=== PATIENT | female | born 1985 | race Caucasian/White ===

== ENCOUNTER 2016-09-21 06:16 | Emergency (ER) | payer OTHER ==
[~2016-09-21 06:16] MED LIST: BACTRIM DS TABL1 TA1 PO; FLEXERIL10 MG PO; NAPROSYN500 MG PO; NO MEDICATIONS; PREDNISONE TAPER PO; VOLTAREN75 MG PO
== END 2016-09-21 06:33 | disposition home or self-care (01) ==
LOC: SED 06:16
DX: F15.10 Other stimulant abuse, uncomplicated (principal); F17.200 Nicotine dependence, unspecified, uncomplicated
CPT/HCPCS: 99282

== ENCOUNTER 2016-09-22 21:13 | Emergency (ER) | payer OTHER ==
[2016-09-22 21:53] LABS: BASOPHIL# 0.1 X10e3 (0-0.3); BASOPHIL% 0.8 % (0-2.5); DIFF IND NO; EOSINOPHIL# 0.2 X10e3 (0-0.7); EOSINOPHIL% 2.6 % (0.0-7.0); HEMATOCRIT 37.8 % (35.0-45.0); HEMOGLOBIN 12.8 gm/dL (12.0-16.0); LYMPHOCYTE# 2.1 X10e3 (1.0-3.5); LYMPHOCYTE% 24.7 % (17.0-45.0); MEAN CELL VOLUME 83.6 FL (83-96); MEAN CORPUSCULAR HEMOGLOBIN 28.4 PG (28-34); MEAN CORPUSCULAR HGB CONC 33.9 g/dL (30-36); MEAN PLATELET VOLUME 8.1 FL (6.5-11.5); MONOCYTE% 11.9 % (3.0-12.0); NEUTROPHIL# 5.2 X10e3 (1.5-7.1); PLATELET COUNT 299 X10e3 (140-420); RED BLOOD COUNT 4.52 X10e (3.90-5.30); RED CELL DISTRIBUTION WIDTH 13.8 % (11.0-15.5); WHITE BLOOD COUNT 8.7 X10e3 (4.0-10.5)
[2016-09-22 22:10] LABS: ALKALINE PHOSPHATASE 63 U/L (32-92); ALT (SGPT) 10 U/L (10-40); AST (SGOT) 17 U/L (10-42); BILIRUBIN,TOTAL 0.6 mg/dL (0.2-2.0); BLOOD UREA NITROGEN 26 mg/dL (9-23); BUN/CREATININE RATIO 43.33; CARBON DIOXIDE 23 mmol/L (22-31); CHLORIDE 107 mmol/L (100-111); CREATININE SERUM 0.6 mg/dL (0.6-1.4); GLOM FILT RATE Estimated 121.5 mL/min (>60); GLUCOSE FASTING 95 mg/dL (70-110); LIPASE 22 U/L (22-51); POTASSIUM 3.7 mmol/L (3.5-5.1); PROTEIN TOTAL SERUM 7.3 g/dL (6.0-8.3); SODIUM 139 mmol/L (135-145)
[2016-09-22 22:12] LABS: BILIRUBIN, DIRECT <0.1 mg/dL (0.0-0.2); BILIRUBIN,INDIRECT 0.5 mg/dL (0.0-0.9)
== END 2016-09-22 23:06 | disposition home or self-care (01) ==
LOC: SED 21:13
PROVIDERS: Emergency Medicine
DX: G89.29 Other chronic pain (principal); R10.9 Unspecified abdominal pain; F15.10 Other stimulant abuse, uncomplicated; F17.200 Nicotine dependence, unspecified, uncomplicated
CPT/HCPCS: 36415; 80048; 80076; 83690; 84703; 85025; 99284

== ENCOUNTER 2016-11-08 00:36 | Emergency (ER) | payer OTHER | END 2016-11-08 01:01 | disposition home or self-care (01) | LOC: SED 00:36 | DX: Z53.21 Procedure and treatment not carried out due to patient leaving prior to being seen by health care provider (principal) ==